=== PATIENT | female | born 1950 | race Two or more races ===

== ENCOUNTER 2021-04-28 06:35 | Outpatient (CLI) | payer OTHER ==
[~2021-04-28 06:35] MED LIST: CLARITIN5 MG PO; COZAAR100 MG PO; D3 + K2 DOTS 11 EACH PO; LEVO-T50 MCG PO; MULTI-VITAMIN1 EACH PO; OMEGA 3 1,0001 EACH PO; PROMETRIUM200 MG PO; SINGULAIR10 MG PO
== END 2021-04-28 06:37 | disposition home or self-care (01) ==
LOC: LAB 06:35
PROVIDERS: ATTEND Orthopaedic Surgery Hand Surgery
DX: Z11.52 Encounter for screening for COVID-19 (principal); Z20.828 Contact with and (suspected) exposure to other viral communicable diseases; Z03.818 Encounter for observation for suspected exposure to other biological agents ruled out

== ENCOUNTER 2021-05-03 06:00 | Day surgery (SDC) | payer OTHER | END 2021-05-03 10:35 | disposition home or self-care (01) | LOC: CIR.AMB 06:00 | PROVIDERS: ATTEND Orthopaedic Surgery Hand Surgery | DX: M65.331 Trigger finger, right middle finger (principal); Z20.822 Contact with and (suspected) exposure to COVID-19 ==

== ENCOUNTER → 2023-12-20 | Emergency (ER) | payer OTHER ==
[~2023-12-20] VITALS: Ht 154.9 cm; Wt 83.9 kg
[~2023-12-20] MED LIST changes: +DICLOFENAC SODI75 MG PO; +KETOROLAC TROMETHAMINE 60 MG VIAL IM ONE; +LIPITOR40 M1 PO; +ORPHENADRINE CITRATE 30 MG/ML AMPUL IM ONE; +ORPHENADRINE CITRATE 30 MG/ML AMPUL ONE
== END | disposition home or self-care (01) ==
LOC: ER 11:08
DX: M54.50 Low back pain, unspecified (principal); Z88.7 Allergy status to serum and vaccine; Z91.013 Allergy to seafood
CPT/HCPCS: 96372; 99282; J1885; J2360

== ENCOUNTER 2023-12-21 09:11 | Outpatient (CLI) | payer OTHER ==
[~2023-12-21 09:11] MED LIST changes: -KETOROLAC TROMETHAMINE 60 MG VIAL IM ONE; -ORPHENADRINE CITRATE 30 MG/ML AMPUL IM ONE; -ORPHENADRINE CITRATE 30 MG/ML AMPUL ONE
== END 2023-12-21 09:27 | disposition home or self-care (01) ==
LOC: MRI 09:11
DX: E03.9 Hypothyroidism, unspecified (principal); I11.9 Hypertensive heart disease without heart failure; M54.50 Low back pain, unspecified; M54.31 Sciatica, right side
CPT/HCPCS: 72148